=== PATIENT | male | born 1965 | race Caucasian/White ===

== ENCOUNTER 2017-02-13 10:00 | Emergency (ER) | payer OTHER ==
[2017-02-13 10:01] VITALS: BMI 23.8
[2017-02-13 10:07] VITALS: BP 127/81; PULSE 71; RESP 18; TEMP 97.8; O2SAT 96
--- NOTE | 2017-02-13 10:44 | C.PDOC ---
History Of Present Illness 51 y/o male presents to ED with complaints redness and swelling around right eye for 2 weeks but worsening 2 days ago. Patient denies fever, chills, eye pain , vision changes or any other complaints at this time. Time Seen by Provider: 02/13/17 10:13 Chief Complaint (Nursing): Eye Problem History Per: Patient History/Exam Limitations: no limitations Onset/Duration Of Symptoms: Days Current Symptoms Are (Timing): Still Present Associated Symptoms: Swelling Past Medical History Reviewed: Historical Data, Nursing Documentation, Vital Signs Vital Signs: Last Vital Signs Temp 97.8 F 02/13/17 10:06 Pulse 71 02/13/17 10:06 Resp 18 02/13/17 10:06 BP 127/81 02/13/17 10:06 Pulse Ox 96 02/13/17 11:46 Family History: States: No Known Family Hx - Social History Hx Alcohol Use: No Hx Substance Use: No - Immunization History Hx Tetanus Toxoid Vaccination: No Hx Influenza Vaccination: No Hx Pneumococcal Vaccination: No Review Of Systems Constitutional: Negative for: Fever, Chills Eyes: Positive for: Eyelid Inflammation. Negative for: Vision Change Gastrointestinal: Negative for: Nausea, Vomiting, Diarrhea Skin: Negative for: Rash Neurological: Negative for: Headache, Dizziness Physical Exam - Physical Exam Appears: Non-toxic, No Acute Distress Skin: Normal Color, Warm Head: Atraumatic, Normacephalic Eye(s): bilateral: Normal Inspection, PERRL, EOMI (non-tender), right: Other ( Right Upper eye lid with swelling and erythema; lower eye lid erythematous, with approx 1cm tender mass, with few areas of purulence noted on surface, ) Oral Mucosa: Moist Throat: Normal Neck: Normal ROM Extremity: Swelling Neurological/Psych: Oriented x3, Normal Speech, Normal Motor, Normal Sensation ED Course And Treatment O2 Sat by Pulse Oximetry: 96 (RA) Pulse Ox Interpretation: Normal Medical Decision Making Medical Decision Making: 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 pt understands plan. Disposition Counseled Patient/Family Regarding: Diagnosis, Need For Followup, Rx Given - Disposition Referrals: Carmine Frederick MD [Staff Provider] - Disposition: HOME/ ROUTINE Disposition Time: 10:42 Condition: STABLE Additional Instructions: Take antibiotics as prescribed. Apply antibiotic ointment to affected area of right eye every three hours. Tylenol or Motrin for pain. Apply warm compresses to right lower lid area several times a day. Follow up in Dr Frederick's office tomorrow, February 14, at 9 am. 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 - Scribe Statement The provider has reviewed the documentation as recorded by the Rip Berumen All medical record entries made by the Rip were at my direction and personally dictated by me. I have reviewed the chart and agree that the record accurately reflects my personal performance of the history, physical exam, medical decision making, and the department course for this patient. I have also personally directed, reviewed, and agree with the discharge instructions and disposition.
== END 2017-02-13 10:53 | disposition home or self-care (01) ==
LOC: C.ER 10:00
DX: H00.031 Abscess of right upper eyelid (principal)